=== PATIENT | female | born 1940 | race Caucasian/White ===

== ENCOUNTER → 2018-10-09 | Outpatient (CLI) | payer MEDICARE ==
[~2018-10-09] MED LIST: ALBUTEROL SULFATE 0.083% 2.5 MG/3 ML INH IH ONE
== END | disposition home or self-care (01) ==
LOC: RESP 12:40
PROVIDERS: ATTEND Internal Medicine Cardiovascular Disease
DX: R06.02 Shortness of breath (principal)
CPT/HCPCS: 94060; 94727; 94729

== ENCOUNTER → 2018-11-04 | Outpatient (CLI) | payer MEDICARE | END | disposition home or self-care (01) | LOC: SHCH 09:51 | PROVIDERS: ATTEND Internal Medicine Cardiovascular Disease | DX: R07.9 Chest pain, unspecified (principal) | CPT/HCPCS: 93306 ==

== ENCOUNTER → 2018-11-08 | Outpatient (CLI) | payer MEDICARE ==
[~2018-11-08] VITALS: Ht 160 cm; Wt 70.8 kg
[~2018-11-08] MED LIST changes: -ALBUTEROL SULFATE 0.083% 2.5 MG/3 ML INH IH ONE; +REGADENOSON 0.4 MG/5 ML PF SYG IVP SCH
== END | disposition home or self-care (01) ==
LOC: SHCH 07:51
PROVIDERS: ATTEND Internal Medicine Cardiovascular Disease
DX: R06.02 Shortness of breath (principal)
CPT/HCPCS: 78452; 93017; 96374; A9500 ×2; J2785